=== PATIENT | male | born 1985 ===

== ENCOUNTER 2024-02-02 12:20 | Emergency (ER) | payer OTHER, SELFPAY ==
[2024-02-02 12:22] VITALS: BP 126/88
[2024-02-02 12:39] VITALS: BP 123/80
[2024-02-02 13:00] VITALS: BP 129/80
--- NOTE | 2024-02-02 13:11 | ED.GENMED ---
History of Present Illness
General
Chief Complaint: Dizziness
Source: patient
Exam Limitations: none
Time Seen by Provider: 02/02/24 12:55
Nursing documentation reviewed up to this point in time: agreed with
History of Present Illness
History of Present Illness:
Patient to ED with complaint of head pain and pressure, sinus pain and preesure, rght neck pain, difficulty breathing. States he has had these symptoms for the past 6 mos intermittently, He has not been evaluated by his PCP for this. States 4
days ago symptoms began to worsen and are now constant. Concerned that he has increased intracranial pressure although he has never had this in the past. Denies fever/chills, n/v/d. Eating and drinking normally. Difficulty sleeping due to head
pain.
Past History
Past History
ED Past Medical History: None
ED Past Surgical History: Orthopedic
Social History
Tobacco: Non-smoker
Alcohol: Occasional
Drug: None
Review of Systems
Review of Systems
Allergies reviewed?: Yes
All Other Systems: ROS reviewed and negative except as documented in HPI and ROS
Constitutional: Reports sleep disturbance
EENT: Reports other (sinus pain and pressure)
Respiratory: Reports trouble breathing
Cardiac: Reports no symptoms
ABD/GI: Reports no symptoms
Musculoskeletal: Reports neck pain (right lateral neck pain)
Skin: Reports no symptoms
Neurological: Reports dizzy and headache
Psychiatric: Reports no symptoms
Phy Exam
General Physical Exam
General Presentation: well appearing and no apparent distress
General age: appears stated age
General Skin: warm
General Habitus: normal
General Mental: alert
General Hydration: appears well hydrated
ENT Exam
ENT Exam: EOMI and TM's normal
Eye Exam
Eye Exam: PERRL, EOMI, conjunctiva normal and globe normal
Cardiovascular Exam
Cardiovascular Exam: regular rate/rhythm and no edema
Pulmonary Exam
Pulmonary Exam: lungs clear, no respiratory distress and chest non tender
Neurological Exam
Neurological Exam: alert, oriented x3, CN II-XII intact, no motor deficits, no sensory deficits and speech normal
Musculoskeletal Exam
Musculoskeletal Exam: full ROM and neuro vasc intact
Skin Exam
Skin Exam: normal color, warm/dry and no rash
Psychiatric Exam
Psychiatric Exam: normal mood/affect
Course
Orders/Labs/Results
Orders:
Orders
02/02/24 12:26
EKG [Electrocardiogram (*1)] Urgent
Reason for Study: Chest Pain
02/02/24 12:27
EKG- Treatment ONCE
02/02/24 13:[address] [CT Sinuses W/o Iv Contrast] Urgent
Comment:
Reason For Exam: pain/pressure
CR Chest - 2 Views Urgent
Comment:
Reason For Exam: SOB
02/02/24 13:11
CT Head W/o Iv Contrast Urgent
Comment:
Reason For Exam: pain/pressure
02/02/24 13:25
Complete Blood Count/With Diff Urgent
Comprehensive Metabolic Panel Urgent
02/02/24 13:40
COVID-19 Antigen Urgent
Source: Nasal Swab
02/02/24 14:06
Tetracaine HCl [Tetracaine 0.5% Ophthalmic Solution] 1 drop .ROUTE .STK-MED ONE
Abnormal Lab Results
02/02/24
13:25
WBC 4.6 L 10^3/uL
(4.8-10.8)
RBC 4.63 L 10^6/uL
(4.70-6.10)
MPV 10.5 H fL
(7.4-10.4)
Neutrophils % 41.3 L %
(42.2-75.2)
02/02/24 13:25
02/02/24 13:25
Vital Signs
Initial and Last Documented VS:
Initial Vital Signs
Temp Pulse Resp BP Pulse Ox
98.2 F 72 16 126/88 98
02/02/24 12:22 02/02/24 12:22 02/02/24 12:22 02/02/24 12:22 02/02/24 12:22
Last Documented Vital Signs
Temp Pulse Resp BP Pulse Ox
98.2 F 62 15 129/80 97
02/02/24 12:22 02/02/24 13:30 02/02/24 13:30 02/02/24 13:00 02/02/24 13:30
*Radiology
Radiology exam reviewed: radiology read reviewed
*Pulse Oximetry
Patient hypoxic: no
*Critical Care Note
Total Time (30-74mins, 75-104mins- exclusive of procedures): Not Applicable
Update Note
Update Note:
Patient to ED wtih complaint of head and sinus pressure for [address] reviewed wth him. No concerning findings on exam today. He is discharged home and will follow up with PCP this week.
ED Attending Note
-
Portions of this chart may have been created with voice recognition software.� Occasional wrong word or��sound alike� substitutions may have occurred due to the inherent limitations of voice recognition software.
Discharge Plan
Departure
Patient Disposition: Home (Routine Discharge)
Date of Disposition: 02/02/24
Time of Disposition: 14:15
Patient with high blood pressure during this ER visit?: No
Condition: Good
Covid-19: Not Applicable
Discharge Problem:
Headache
Instructions: Headache, Adult ED
Referrals:
Rene Valdes MD [Family Provider] - Follow up in 2-3 days
Andrea Hill MD [Active] - Next open appointment
Interventions
Interventions:
*Risk Screen - Suicide Last Done: 02/02/24 12:22
*General Assessment Last Done: 02/02/24 12:22
*Neglect/Abuse Screening Last Done: 02/02/24 12:22
ED- Fall Risk Assessment Last Done: 02/02/24 13:13
*ED COVID-19 Vaccine History Last Done: 02/02/24 13:13
ED- Neurological Assessment Last Done: 02/02/24 13:13
ED- Cardiac Assessment Last Done: 02/02/24 13:13
ED Swallowing Screen Last Done: 02/02/24 13:13
Discharge Date and Time
Print Language: SPANISH
[2024-02-02 13:13] VITALS: BMI 29.7
[2024-02-02 13:34] LABS: % Basophils 0.2 % (0-2); % Eosinophils 2.2 % (0-6); % Lymphocytes 47.9 % (20.5-51.1); % Monocytes 8.4 % (1.7-9.3); % Neutrophils 41.3 % (42.2-75.2); Absolute Eosinophils 0.1 10^3/uL (0-0.7); Absolute Lymphocytes 2.2 10^3/uL (1.2-3.4); Absolute Monocytes 0.4 10^3/uL (0.1-0.6); Absolute Neutrophils 1.9 10^3/uL (1.4-6.5); Hematocrit 39.4 % (39.0-52.0); Mean Corp Hgb Conc. 35.5 g/dL (33.0-37.0); Mean Corpuscular Hgb 30.2 pg (27.0-31.0); Mean Corpuscular Volume 85.1 fL (80.0-94.0); Mean Platelet Volume 10.5 fL (7.4-10.4); Nucleated Red Blood Cells % 0 % (-); Platelet Count 201 10^3/uL (130-400); Red Blood Cell Count 4.63 10^6/uL (4.70-6.10); Red Cell Dist. Width 12.1 % (11.5-14.5); White Blood Cell Count 4.6 10^3/uL (4.8-10.8)
[2024-02-02 13:44] LABS: ALT (SGPT) 22 U/L (0-50); AST (SGOT) 24 U/L (17-59); Albumin 4.4 g/dl (3.5-5.0); Alkaline Phosphatase 63 U/L (38-126); Blood Urea Nitrogen 20 mg/dl (9-20); Calcium 9.4 mg/dl (8.4-10.2); Carbon Dioxide 26 mmol/L (22-30); Chloride 105 mmol/L (98-107); Estimated Creatinine Clearance 106 ml/min; Glucose 86 mg/dl (70-99); Potassium 4.3 mmol/L (3.5-5.1); Sodium 137 mmol/L (135-145); Total Bilirubin 0.6 mg/dl (0.2-1.3); eGFR > 60.00
[2024-02-02 14:17] VITALS: BP 115/67
[2024-02-02 15:05] LABS: COVID-19 Antigen Negative (Negative)
== END 2024-02-02 14:36 | disposition home or self-care (01) ==
LOC: EMR 12:20
PROVIDERS: Nurse Practitioner; EMERGENCY PHYSICIAN Emergency Medicine; FAMILY PHYSICIAN Internal Medicine
DX: R51.9 Headache, unspecified (principal)
CPT/HCPCS: 99284; 70450; 70486; 71046; 80053; 85025; 87811; 93005